=== PATIENT | male | born 1950 | race Caucasian/White ===

== ENCOUNTER → 2017-01-10 | Outpatient (CLI) | payer MEDICARE, BC | LOC: MW.CHIM 08:00 | PROVIDERS: ATTEND Internal Medicine | DX: I10 Essential (primary) hypertension (principal); E79.0 Hyperuricemia without signs of inflammatory arthritis and tophaceous disease; R07.89 Other chest pain; G47.00 Insomnia, unspecified | CPT/HCPCS: 99214 ==

== ENCOUNTER → 2017-01-25 | Outpatient (CLI) | payer MEDICARE, BC ==
--- NOTE | 2017-01-25 11:07 | NM ---
EXAMINATION: Nuclear medicine myocardial perfusion study with exercise stress test. HISTORY: Chest pain. PROCEDURE: Patient exercised according to Bert protocol for 7 minutes and 47 seconds and achieved maximal hear t rate of 140 beats per minute. Adequate exercise. Following intravenous administration of 8.8 and 29.7 mCi of technetium 99m sestamibi, stress and r est SPECT images including gating imaging was performed. FINDINGS: Stress and rest myocardial SPECT images demonstrates mildly decreased perfusion along the inferior w all which is predominantly fixed. There is likely a degree of diaphragmatic attenuation. Minimal isc hemia towards the base would be difficult to exclude however not likely. Review of gated images demonstrates normal wall motion, contractility and wall thickening. The left ventricular ejection fraction is 56 %. The left ventricular chamber size is normal. IMPRESSION: 1. No definite evidence of myocardial ischemia. 2. Normal ventricular chamber size and function with ejection fraction of 56 %.
--- NOTE | 2017-01-26 09:12 | PCM.PRNOTE ---
- Free Text/Narrative Note: Procedure: Cardiolite exercise stress test Resting blood pressure 142/82, pulse 73 Patient exercised per Bert protocol 7 minutes and 47 seconds and achieved a maximum heart rate of 140 beats per minute which was 90% of age-predicted maximum heart rate. Mets: 10.1 double product 29161 Resting EKG revealed normal sinus rhythm. With exertion, no significant ST-T changes were noted. Test stopped at target heart rate. No complaints of chest pain during exercise or recovery with an unremarkable recovery phase. Impression: #1. Negative stress test for ischemic ST-T changes #2. Fair exercise tolerance. #3. Cardiolite portion of test pending
== END ==
LOC: MW.NM 06:13
PROVIDERS: ATTEND Internal Medicine
DX: R07.89 Other chest pain (principal); R07.9 Chest pain, unspecified
CPT/HCPCS: 78452; 93017; A9500